=== PATIENT | female | born 1955 | race Caucasian/White ===

== ENCOUNTER 2024-01-07 10:15 | Day surgery (SDC) | payer OTHER ==
[~2024-01-07] VITALS: Ht 165.1 cm; Wt 77.1 kg
[~2024-01-07 10:15] MED LIST: ceFAZolin SODIUM 2 GM in D5W 100 ML IV ONE
[2024-01-07 11:35] VITALS: O2SAT 99
[2024-01-07] MEDS ORDERED: SEVOFLURANE 15 MIN GAS INH ONE (12:59)
[2024-01-07] MEDS ORDERED: MIDAZOLAM HCL 5 MG/ML VIAL (VERSED) IV ONE (12:59)
[2024-01-07] MEDS ORDERED: DEXAMETHASONE SOD PHOSPHATE 4 MG/ML VIAL ONE (12:59)
[2024-01-07] MEDS ORDERED: ONDANSETRON HCL 4 MG/2 ML VIAL ONE (12:59)
[2024-01-07] MEDS ORDERED: METOCLOPRAMIDE HCL 10 MG/2 ML VIAL ONE (12:59)
[2024-01-07] MEDS ORDERED: fentaNYL CITRATE/PF 100 MCG/2 ML AMP ONE (12:59)
[2024-01-07] MEDS ORDERED: LIDOCAINE/EPI 1% 1:100000 20 ML VIAL ONE (12:59)
[2024-01-07] MEDS ORDERED: NS 250 ML IV.SOLN IV ONE (12:59)
[2024-01-07] MEDS ORDERED: HEPARIN SODIUM, PORCINE 10,000 UNITS/ 10 ML VIAL ONE (12:59)
[2024-01-07] MEDS ORDERED: PROPOFOL 200MG/ 20ML VIAL (DIPRIVAN) IV ONE (12:59)
[2024-01-07] MEDS ORDERED: WATER FOR IRRIGATION,STERILE 1,000 ML IRRIG.SOLN IR ONE (12:59)
[2024-01-07] MEDS ORDERED: LR 1,000 ML IV.SOLN IV ONE (12:59)
[2024-01-07] MEDS ORDERED: ONDANSETRON HCL 4 MG/2 ML VIAL IVP PRN (13:30)
[2024-01-07] MEDS: HYDROmorphone 1 MG/ML INJ. CARTRIDGE IVP PRN (13:43)
[2024-01-07] MEDS ORDERED: HYDROmorphone 1 MG/ML INJ. CARTRIDGE ONE (13:43)
[2024-01-07 20:03] VITALS: BP_SYST 134; PULSE 110; RESP 16
== END 2024-01-07 16:55 | disposition home or self-care (01) ==
LOC: SDS 10:15 → SMU 10:16 → SDS 16:55
PROVIDERS: ATTEND Surgery
DX: C18.0 Malignant neoplasm of cecum (principal); I10 Essential (primary) hypertension
CPT/HCPCS: 87081; 36556; 71045; 77001; 76937; J1100; J1644; J2765; J2250; J2405; J2704; J3010; J1170; J7060; J7120; J7050; C1788; 76000